=== PATIENT | male | born 1970 | race American Indian/Alaskan Native ===

== ENCOUNTER 2021-07-20 04:00 | Emergency (ER) | payer OTHER ==
[~2021-07-20] VITALS: Ht 180.3 cm; Wt 77.1 kg
[2021-07-20] MEDS ORDERED: HYDR1TAB94 PO (06:21)
== END 2021-07-20 07:08 | disposition home or self-care (01) ==
LOC: ER 04:00
DX: S53.105A Unspecified dislocation of left ulnohumeral joint, initial encounter (principal); F17.200 Nicotine dependence, unspecified, uncomplicated; W06.XXXA Fall from bed, initial encounter
CPT/HCPCS: 24600; 73070; 96374; 99283-25; J2270; J7030

== ENCOUNTER 2022-12-24 06:34 | Emergency (ER) | payer SELFPAY ==
[~2022-12-24] VITALS: Ht 180.3 cm; Wt 72.6 kg
[~2022-12-24 06:34] MED LIST: HYDR1TAB94 PO
[2022-12-24 08:00] VITALS: BP 120/76
[2022-12-24] MEDS ORDERED: HYDR1TAB94 PO (08:05)
[2022-12-24] MEDS ORDERED: AMOCLA875 PO (08:05)
[2022-12-24] MEDS ORDERED: Percocet 5-3251 EACH PO (13:00)
== END 2022-12-24 08:16 | disposition home or self-care (01) ==
LOC: ER 06:34
DX: K04.7 Periapical abscess without sinus (principal); Z87.891 Personal history of nicotine dependence
CPT/HCPCS: A9270